=== PATIENT | male | born 1940 | race Caucasian/White ===

== ENCOUNTER → 2021-01-03 | Outpatient (CLI) | payer MEDICARE, BC ==
[2021-01-03 09:01] LABS: ABG HCO3 23 mmol/L (22-26); ABG PCO2 33 mmHg (35-45); ABG PH 7.44 (7.35-7.45); ABG PO2 119 mmHg (80-105); ABG TCO2 23
== END ==
LOC: RESP 07:45
PROVIDERS: ATTEND Family Medicine Adult Medicine
DX: Z01.810 Encounter for preprocedural cardiovascular examination (principal); Z01.811 Encounter for preprocedural respiratory examination; N30.41 Irradiation cystitis with hematuria
CPT/HCPCS: 36415; 36600; 71046; 82805; 93005; 93306

== ENCOUNTER 2021-01-26 09:34 | Outpatient (RCR) | payer MEDICARE, BC ==
[~2021-01-26 09:34] MED LIST: LIDOCAINE VISC 2% SOLN 15 ML UDC ONE
== END 2021-01-27 ==
LOC: EDBD → WCC 09:34
PROVIDERS: ATTEND Family Medicine Adult Medicine
DX: N30.41 Irradiation cystitis with hematuria (principal); I87.2 Venous insufficiency (chronic) (peripheral); M10.9 Gout, unspecified; I10 Essential (primary) hypertension; C61 Malignant neoplasm of prostate; G47.33 Obstructive sleep apnea (adult) (pediatric); Z01.810 Encounter for preprocedural cardiovascular examination; Z01.811 Encounter for preprocedural respiratory examination
CPT/HCPCS: 99203; 99212; G0277 ×9

== ENCOUNTER → 2021-02-27 | Outpatient (RCR) | payer MEDICARE, BC | LOC: WCC 01-29 14:29 | PROVIDERS: ATTEND Family Medicine Adult Medicine | DX: N30.41 Irradiation cystitis with hematuria (principal); C61 Malignant neoplasm of prostate; I87.2 Venous insufficiency (chronic) (peripheral); M10.9 Gout, unspecified; I10 Essential (primary) hypertension; G47.33 Obstructive sleep apnea (adult) (pediatric); Z01.810 Encounter for preprocedural cardiovascular examination; Z01.811 Encounter for preprocedural respiratory examination | CPT/HCPCS: 99212; G0277 ×22 ==

== ENCOUNTER 2021-03-23 10:56 | Outpatient (RCR) | payer MEDICARE, BC | END 2021-03-29 | LOC: WCC 10:56 | PROVIDERS: ATTEND Family Medicine Adult Medicine | DX: N30.41 Irradiation cystitis with hematuria (principal); C61 Malignant neoplasm of prostate; I87.2 Venous insufficiency (chronic) (peripheral); M10.9 Gout, unspecified; I10 Essential (primary) hypertension; G47.33 Obstructive sleep apnea (adult) (pediatric); Z01.810 Encounter for preprocedural cardiovascular examination; Z01.811 Encounter for preprocedural respiratory examination | CPT/HCPCS: G0277 ×14 ==

== ENCOUNTER 2021-04-19 10:11 | Outpatient (RCR) | payer MEDICARE, BC | END 2021-04-29 | LOC: WCC 10:11 | PROVIDERS: ATTEND Family Medicine Adult Medicine | DX: C61 Malignant neoplasm of prostate (principal); I87.2 Venous insufficiency (chronic) (peripheral); M10.9 Gout, unspecified; N30.41 Irradiation cystitis with hematuria; I10 Essential (primary) hypertension; G47.33 Obstructive sleep apnea (adult) (pediatric); Z01.810 Encounter for preprocedural cardiovascular examination; Z01.811 Encounter for preprocedural respiratory examination | CPT/HCPCS: 99211; G0277 ×13 ==